=== PATIENT | male | born 1970 | race Caucasian/White ===

== ENCOUNTER → 2017-01-16 | Outpatient (CLI) | payer BC ==
--- NOTE | 2017-01-16 11:20 | XR ---
EXAMINATION TYPE: XR chest 2V DATE OF EXAM: 01/16/2017 11:00 AM COMPARISON: 11/15/2009 INDICATION: Cough, bronchitis TECHNIQUE: Single frontal view of the chest is obtained. FINDINGS: The heart size is normal. The pulmonary vasculature is normal. There is some streak opacity at the left base better visualized on the lateral projection. Correlate for streak atelectasis. IMPRESSION: 1. Streak atelectasis left base
== END | disposition home or self-care (01) ==
LOC: RADXRMAIN 10:42
PROVIDERS: ATTEND Family Medicine
DX: J98.11 Atelectasis (principal); B34.9 Viral infection, unspecified
CPT/HCPCS: 71020; 87502

== ENCOUNTER 2019-11-12 18:52 | Observation (INO) | payer BC ==
[2019-11-12] MEDS ORDERED: SODIUM CHLORIDE 0.9% 1,000 ML IV STA (19:20)
[2019-11-12] MEDS ORDERED: NITROGLYCERIN SL TABS 0.4 MG TAB SUBLINGUAL STA (19:20)
[2019-11-12] MEDS ORDERED: ASPIRIN 81 MG PO STA (19:20)
--- NOTE | 2019-11-12 19:23 | ED ---
Chest Pain HPI - General Chief Complaint: Chest Pain Stated Complaint: chest pain Time Seen by Provider: 11/12/19 19:13 Source: patient, RN notes reviewed Mode of arrival: ambulatory Limitations: no limitations - History of Present Illness Initial Comments: This a 49-year-old male with a history of tachycardia in the past that was evaluated with EPS studies with a negative result who presents with complaints of the onset of chest pain this started today between 4 4:30 PM he states is been on-and-off as severe as 8 or 9/10 severity for brief periods of time currently not a 3-4/10 in severity he was apparently very pale-appearing earlier per his he states the pain does sometimes go down his left arm. He had no cough no phlegm production no fevers chills nausea vomiting no overt sweats. No palpitations or tachycardia. He is a nonsmoker. No other modifying factors at this time MD Complaint: chest pain - Related Data Previous Rx's Medication Instructions Recorded Ibuprofen [Motrin] 600 mg PO Q6HR PRN #20 tab 01/11/15 Allergies Allergy/AdvReac Type Severity Reaction Status Date / Time Penicillins Allergy Unknown Verified 11/12/19 18:59 Review of Systems ROS Statement: Those systems with pertinent positive or pertinent negative responses have been documented in the HPI. ROS Other: All systems not noted in ROS Statement are negative. EKG Findings - EKG Results: EKG: interpreted by DONNELL, sinus rhythm (Sinus rhythm rate 671:30 QRS duration 90 QT since QTC 372/393 st-t wave changes) Past Medical History Past Medical History: No Reported History Additional Past Medical History / Comment(s): tachycardia History of Any Multi-Drug Resistant Organisms: None Reported Past Surgical History: Orthopedic Surgery Additional Past Surgical History / Comment(s): cardiac cath Past Psychological History: No Psychological Hx Reported Smoking Status: Never smoker Past Alcohol Use History: None Reported Past Drug Use History: None Reported General Exam - General Exam Comments Initial Comments: This is a well-developed well-nourished awake alert oriented 3 male Limitations: no limitations General appearance: alert, anxious Head exam: Present: atraumatic, normocephalic, normal inspection Eye exam: Present: normal appearance, PERRL, EOMI. Absent: scleral icterus, conjunctival injection, periorbital swelling ENT exam: Present: normal exam, mucous membranes moist Neck exam: Present: normal inspection, full ROM, other (No stridor JVD or bruits). Absent: tenderness, meningismus, lymphadenopathy Respiratory exam: Present: normal lung sounds bilaterally. Absent: respiratory distress, wheezes, rales, rhonchi, stridor Cardiovascular Exam: Present: regular rate, normal rhythm, normal heart sounds. Absent: systolic murmur, diastolic murmur, rubs, gallop, clicks GI/Abdominal exam: Present: soft, normal bowel sounds. Absent: distended, tenderness, guarding, rebound, rigid Extremities exam: Present: normal inspection, full ROM, normal capillary refill. Absent: tenderness, pedal edema, joint swelling, calf tenderness Back exam: Present: normal inspection Neurological exam: Present: alert, oriented X3, CN II-XII intact Psychiatric exam: Present: normal affect, normal mood Skin exam: Present: warm, dry, intact, normal color. Absent: rash Course Vital Signs 11/12/19 11/12/19 18:56 20:11 Temperature 97.5 F L Pulse Rate 75 87 Respiratory 18 16 Rate Blood Pressure 164/106 113/80 O2 Sat by Pulse 99 96 Oximetry - Reevaluation(s) Reevaluation #1: 11/12/19 21:46 Patient did get relief from his discomfort after given nitroglycerin. Reevaluation #2: 11/12/19 21:47 I did discuss the lab work with the family the elevated d-dimer will be investigated CAT scan was negative however. No evidence of PE Chest Pain MDM - MDM I did review the imaging and report no acute findings patient does demonstrate evidence of chest pain which is suspicious for new-onset angina patient will be admitted with cardiology consultation the case is discussed with the family as well as with Dr. Castillo. Critical Care Time Critical Care Time: Yes Critical Care Time: 31 minutes of critical care time which includes initial presentation with history physical labs x-rays reevaluation patient responsive therapy discuss with the patient regarding all the findings on several occasions discuss with the admitting physician admission orders and documentation of the above Disposition Clinical Impression: Chest pain, Unstable angina Disposition: ADMITTED IP TO THIS [facility] Condition: Fair Referrals: Steven Castillo MD [Primary Care Provider] - 1-2 days
[2019-11-12 19:33] LABS: Basophils # (A) 0.1 k/uL (0-0.2); Basophils % (A) 1 %; Eosinophils # (A) 0.1 k/uL (0-0.7); Eosinophils % (A) 1 %; HCT 49.3 % (39.0-53.0); HGB 16.4 gm/dL (13.0-17.5); Lymphocytes # (A) 2.4 k/uL (1.0-4.8); Lymphocytes % (A) 35 %; MCH 30.4 pg (25.0-35.0); MCHC 33.2 g/dL (31.0-37.0); MCV 91.6 fL (80.0-100.0); Mean Platelet Volume 8.6; Monocytes # (A) 0.5 k/uL (0-1.0); Monocytes % (A) 7 %; Neutrophils # (A) 3.7 k/uL (1.3-7.7); Neutrophils % (A) 54 %; Platelet Count 218 k/uL (150-450); RBC 5.38 m/uL (4.30-5.90); RDW 12.3 % (11.5-15.5); WBC 6.9 k/uL (3.8-10.6)
[2019-11-12 19:42] LABS: Albumin 4.6 g/dL (3.5-5.0); Calcium 9.1 mg/dL (8.4-10.2); Magnesium 2.1 mg/dL (1.6-2.3); Potassium 3.9 mmol/L (3.5-5.1); Total Bilirubin 0.5 mg/dL (0.2-1.3); Total Protein 7.9 g/dL (6.3-8.2)
[2019-11-12 19:53] LABS: Prothrombin Time 10.4 sec (9.0-12.0)
--- NOTE | 2019-11-12 20:04 | XR ---
EXAMINATION TYPE: XR chest 2V DATE OF EXAM: 11/12/2019 COMPARISON: 01/16/2017 INDICATION: Chest pain TECHNIQUE: Frontal and lateral views of the chest are obtained. FINDINGS: The heart size is normal. The pulmonary vasculature is normal. Very minimal plate atelectasis or scarring is at the left lung base. Lungs are otherwise clear. IMPRESSION: 1. Minimal scarring left lung base. Recurrent plate atelectasis could be considered.
[2019-11-12 20:05] LABS: D-Dimer 0.62 mg/L FEU (<0.60)
--- NOTE | 2019-11-12 21:14 | CT ---
CT CHEST FOR PULMONARY EMBOLISM. EXAMINATION TYPE: CT angio chest DATE OF EXAM: 11/12/2019 INDICATION: Chest pain, Elevated d-dimer CT DLP: 471.1 mGycm, Automated exposure control for dose reduction was used. CONTRAST: Patient injected with 80 mL of Isovue 370. COMPARISON: None TECHNIQUE: CT of the chest is performed on a spiral scan at 2 mm thick sections. Study is performed with intravenous contrast timed for evaluation for pulmonary embolism. This will limit additional po rtions of the evaluation. 3-D MIP images reconstructed by the technologist are reviewed on the compu ter in the coronal and sagittal planes. FINDINGS: No persistent filling defects are evident to suggest an acute pulmonary embolism. No mediastinal or hilar adenopathy enlarged by CT criteria is evident. The ascending aorta diameter at the level of the main pulmonary artery is 3.3 cm. The main pulmonary artery diameter at the bifur cation is 2.8 cm. Lung windows are clear. Limited CT section through the upper abdomen are unremarkable. IMPRESSIONS: 1. No acute pulmonary embolism.
[2019-11-12] MEDS ORDERED: NITROGLYCERIN SL TABS 0.4 MG TAB SUBLINGUAL PRN (21:48)
[2019-11-12] MEDS ORDERED: HEPARIN SODIUM,PORCINE 5,000 UNIT/ML 1 ML VIAL IV ONE (21:48)
[2019-11-12] MEDS ORDERED: NITROGLYCERIN OINT 1 INCH/GM PACKET TOPICAL STA (21:50)
[2019-11-12] MEDS ORDERED: HEPARIN SOD,PORK IN 0.45% NACL 25,000 UNIT in 0.45% NACL 1 250ML.BAG IV SCH (22:00)
[2019-11-12] MEDS: NITROGLYCERIN OINT 1 INCH/GM PACKET TOPICAL SCH (22:43)
[2019-11-13] MEDS: NITROGLYCERIN OINT 1 INCH/GM PACKET TOPICAL SCH (05:33)
[2019-11-13 05:57] LABS: Cholesterol 163 mg/dL (<200); HDL Cholesterol 53 mg/dL (40-60); LDL Cholesterol,Calculated 88 mg/dL (0-99); Triglycerides 111 mg/dL (<150)
[2019-11-13 08:31] VITALS: RESP 18
[2019-11-13] MEDS ORDERED: INFLUENZA VACCINE (6 MOS+) 60 MCG/0.5 ML SYRINGE IM ONE (09:00)
[2019-11-13] MEDS ORDERED: ASPIRIN 81 MG PO SCH (09:00)
[2019-11-13] MEDS ORDERED: ASPIRIN 325 MG TAB PO SCH (09:00)
--- NOTE | 2019-11-13 09:16 | P.CRDCN ---
History of Present Illness History of present illness: HISTORY OF PRESENTING ILLNESS This is a pleasant 49-year-old male with no significant past medical history. 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 We have been asked to see in consultation for chest pain. He states yesterday while at work sitting down he experienced a tight squeezing sensation in the midsternal region. At times there is radiation down the left arm but most of the time it remained centralized in the chest. There is no specific aggravating or alleviating factors. He denies associated shortness of breath, dizziness, nausea, vomiting, diaphoresis or palpitations. He does have a history of intermittent palpitations that has been worked up in the past by Dr. Waggoner with an EP study. There is no definitive diagnosis ever determined. He does not follow regularly in the office. He is seen and examined sitting up in bed in no acute distress. He has had no further symptoms of chest discomfort since arriving in the hospital. Telemetry tracings have been unremarkable. DIAGNOSTICS EKG reveals sinus mechanism with no acute ST or T wave abnormalities noted. Chest xray minimal scarring of the left lung base. CTA negative for pulmonary embolism, ascending aorta diameter at the level of the main pulmonary arteries 3.3 cm. Laboratory reviewed, CBC unremarkable, d-dimer 0.62, sodium 139, potassium 3.9, creatinine 1.19, cardiac enzymes negative 3, LDL 88. He takes no daily cardiac medications. REVIEW OF SYSTEMS At the time of my exam: CONSTITUTIONAL: Denies fever or chills. CARDIOVASCULAR: Denies chest pain, shortness of breath, orthopnea, PND or palpitations. RESPIRATORY: Denies cough. GASTROINTESTINAL: Denies abdominal pain, diarrhea, constipation, nausea or vomiting. MUSCULOSKELETAL: Denies myalgias. NEUROLOGIC: Denies numbness, tingling or weakness. ENDOCRINE: Denies fatigue, weight change, polydipsia or polyurina. GENITOURINARY: Denies burning, hematuria or urgency with micturation. HEMATOLOGIC: Denies history of anemia or bleeding. PHYSICAL EXAMINATION Blood pressure 113/67 heart rate 62 afebrile and maintaining oxygen saturation on room air. CONSTITUTIONAL: No apparent distress. HEENT: Head is normocephalic. Pupils are equal, round. Sclerae anicteric. Mucous membranes of the mouth are moist. No JVD. No carotid bruit. CHEST EXAMINATION: Lungs are clear to auscultation. No chest wall tenderness is noted on palpation or with deep breathing. HEART EXAMINATION: Regular rate and rhythm. S1, S2 heard. No murmurs, gallops or rub. ABDOMEN: Soft, nontender. Positive bowel sounds. EXTREMITIES: 2+ peripheral pulses, no lower extremity edema and no calf tenderness. NEUROLOGIC EXAMINATION: Patient is awake, alert and oriented x3. ASSESSMENT Chest pain, atypical for angina. An acute event has been ruled out. PLAN An acute event has been ruled out. Obtain 2D echocardiogram and doppler study to assess cardiac structure and function. Perform stress echocardiogram to assess for stress induced ischemia. If normal he is stable from a cardiac perspective. Thank you kindly for this consultation. Nurse Practitioner note has been reviewed, I agree with a documented findings and plan of care. Patient was seen and examined. Past Medical History Past Medical History: No Reported History Additional Past Medical History / Comment(s): tachycardia History of Any Multi-Drug Resistant Organisms: None Reported Past Surgical History: Orthopedic Surgery Additional Past Surgical History / Comment(s): ep study; tilt table; l knee x2; right elbow Past Psychological History: No Psychological Hx Reported Smoking Status: Never smoker Past Alcohol Use History: None Reported Past Drug Use History: None Reported Medications and Allergies Home Medications Medication Instructions Recorded Confirmed Type No Known Home Medications 11/12/19 11/12/19 History Allergies Allergy/AdvReac Type Severity Reaction Status Date / Time Penicillins Allergy Unknown Verified 11/12/19 22:07 Physical Exam Vitals: Vital Signs Temp Pulse Pulse Resp BP BP Pulse Ox 11/13/19 03:46 98.2 F 78 16 105/64 97 11/12/19 23:21 98.6 F 62 18 118/71 96 11/12/19 22:25 98.6 F 79 16 116/91 96 11/12/19 20:11 87 16 113/80 96 11/12/19 18:56 97.5 F L 75 18 164/106 99 Intake and Output 11/12/19 11/13/19 11/13/19 22:59 06:59 14:59 Intake Total 366.624 Balance 366.624 Intake: Intake, IV Titration 366.624 Amount Heparin Sod,Pork in 0.45% 66.624 NaCl 25,000 unit In 0.45 % NaCl 1 250ml.bag @ 12 UNITS/KG/HR 8.709 mls/hr IV .Q24H ABIOLA Rx#: [id number] Sodium Chloride 0.9% 1, 300 000 ml @ 75 mls/hr IV . [id number] STA Rx#:[id number] Other: Weight 72.575 kg 72.575 kg Results 11/12/19 19:23 11/12/19 19:23 Cardiac Enzymes 11/12/19 11/12/19 11/13/19 Range/Units 19:23 19:23 01:49 AST 32 (17-59) U/L Troponin I <0.012 <0.012 (0.000-0.034) ng/mL 11/13/19 Range/Units 05:22 AST (17-59) U/L Troponin I <0.012 (0.000-0.034) ng/mL Coagulation 11/12/19 11/13/19 Range/Units 19:23 05:22 PT 10.4 (9.0-12.0) sec APTT 25.0 39.8 H (22.0-30.0) sec Lipids 11/13/19 Range/Units 05:22 Triglycerides 111 (<150) mg/dL Cholesterol 163 (<200) mg/dL HDL Cholesterol 53 (40-60) mg/dL CBC 11/12/19 Range/Units 19:23 WBC 6.9 (3.8-10.6) k/uL RBC 5.38 (4.30-5.90) m/uL Hgb 16.4 (13.0-17.5) gm/dL Hct 49.3 (39.0-53.0) % Plt Count 218 (150-450) k/uL Comprehensive Metabolic Panel 11/12/19 Range/Units 19:23 Sodium 139 (137-145) mmol/L Potassium 3.9 (3.5-5.1) mmol/L Chloride 103 (98-107) mmol/L Carbon Dioxide 27 (22-30) mmol/L BUN 11 (9-20) mg/dL Creatinine 1.19 (0.66-1.25) mg/dL Glucose 124 H (74-99) mg/dL Calcium 9.1 (8.4-10.2) mg/dL AST 32 (17-59) U/L ALT 27 (4-49) U/L Alkaline Phosphatase 60 (38-126) U/L Total Protein 7.9 (6.3-8.2) g/dL Albumin 4.6 (3.5-5.0) g/dL Current Medications Generic Name Dose Route Start Last Admin Trade Name Freq PRN Reason Stop Dose Admin Sodium Chloride 1,000 mls @ 75 mls/hr 11/12/19 19:20 11/12/19 19:31 Saline 0.9% IV 11/13/19 08:39 75 mls/hr .[id number] STA Administration Influenza Virus Vaccine Quadrival 60 mcg 11/13/19 09:00 Flulaval Vaccine [id number] IM 11/13/19 09:01 .ONCE ONE Nitroglycerin 0.4 mg 11/12/19 21:48 Nitrostat SUBLINGUAL Q5M PRN Chest Pain Intake and Output 11/12/19 11/13/19 11/13/19 22:59 06:59 14:59 Intake Total 366.624 Balance 366.624 Intake: Intake, IV Titration 366.624 Amount Heparin Sod,Pork in 0.45% 66.624 NaCl 25,000 unit In 0.45 % NaCl 1 250ml.bag @ 12 UNITS/KG/HR 8.709 mls/hr IV .Q24H ABIOLA Rx#: [id number] Sodium Chloride 0.9% 1, 300 000 ml @ 75 mls/hr IV . [id number] STA Rx#:[id number] Other: Weight 72.575 kg 72.575 kg 11/12/19 19:23 11/12/19 19:23
[2019-11-13 12:01] VITALS: BP 114/70; PULSE 70; TEMP 98.2
--- NOTE | 2019-11-13 12:27 | ECHOF ---
Referral Reason:cp MEASUREMENTS -------- HEIGHT: 167.6 cm WEIGHT: 72.6 kg BP: 105/64 RVIDd: 3.4 cm (< 3.3) IVSd: 0.9 cm (0.6 - 1.1) LVIDd: 3.4 cm (3.9 - 5.3) LVPWd: 1.2 cm (0.6 - 1.1) IVSs: 1.4 cm LVIDs: 2.5 cm LVPWs: 1.6 cm LAESV Index (A-L): 26.26 ml/m Ao Diam: 3.3 cm (2.0 - 3.7) AV Cusp: 2.3 cm (1.5 - 2.6) LA Diam: 3.6 cm (2.7 - 3.8) MV EXCURSION: 17.354 mm (> 18.000) MV EF SLOPE: 94 mm/s (70 - 150) EPSS: 0.5 cm MV E Pedrito: 0.82 m/s MV DecT: 296 ms MV A Pedrito: 0.33 m/s MV E/A Ratio: 2.47 RAP: 5.00 mmHg RVSP: 26.68 mmHg FINDINGS -------- Sinus rhythm. This was a technically good study. The left ventricular size is normal. Left ventricular wall thickness is normal. There is normal g lobal left ventricular contractility. Overall left ventricular systolic function is normal with, an EF between 55 - 60 %. The diastolic filling pattern is normal for the age of the patient 8.94. The right ventricle is mildly enlarged. Normal LA size by volume 22+/-6 ml/m2. The right atrial size is normal. Interatrial and interventricular septum intact. There is no evidence of aortic regurgitation. There is no evidence of aortic stenosis. No mitral regurgitation. Trace tricuspid regurgitation present. There is no evidence of pulmonary hypertension. The right ventricular systolic pressure, as measured by Doppler, is 26.68mmHg. Trace/mild (physiologic) pulmonic regurgitation. The aortic root size is normal. Normal inferior vena cava with normal inspiratory collapse consistent with estimated right atrial pre ssure of 5 mmHg. There is no pericardial effusion. CONCLUSIONS -------- 1. Sinus rhythm. 2. This was a technically good study. 3. The left ventricular size is normal. 4. Left ventricular wall thickness is normal. 5. There is normal global left ventricular contractility. 6. Overall left ventricular systolic function is normal with, an EF between 55 - 60 %. 7. The diastolic filling pattern is normal for the age of the patient 8.94 8. The right ventricle is mildly enlarged. 9. Normal LA size by volume 22+/-6 ml/m2. 10. The right atrial size is normal. 11. Interatrial and interventricular septum intact. 12. There is no evidence of aortic regurgitation. 13. There is no evidence of aortic stenosis. 14. No mitral regurgitation. 15. Trace tricuspid regurgitation present. 16. There is no evidence of pulmonary hypertension. 17. The right ventricular systolic pressure, as measured by Doppler, is 26.68mmHg. 18. Trace/mild (physiologic) pulmonic regurgitation. 19. The aortic root size is normal. 20. Normal inferior vena cava with normal inspiratory collapse consistent with estimated right atrial pressure of 5 mmHg. 21. There is no pericardial effusion. TELEPHONE OPERATOR RECEPTIONIST: Nikki Esquivel RDCS
--- NOTE | 2019-11-13 13:21 | ECHOS ---
STRESS ECHOCARDIOGRAM DATE OF SERVICE: 11/13/2019 INDICATIONS: Chest pain. MEDICATIONS: BASELINE HEART RATE: 67 BASELINE BLOOD PRESSURE: 107/82 MAXIMUM HEART RATE: 162 MAXIMUM BLOOD PRESSURE: 152/61 85% MPHR: 147 100% MPHR: 173 METS: 9.7 MAXIMUM STAGE REACHED: III TOTAL EXERCISE TIME: 8 minutes 7 seconds CLINICAL INFORMATION: Baseline EKG revealed normal sinus rhythm without significant ST-T changes. Patient walked on a standard Manpreet protocol for a total duration of 8 minutes 7 seconds. Achieved a maximal heart rate of 162 beats per minute, developed fatigue and shortness of breath but did not have angina or arrhythmia. EKG did not reveal any ST-segment changes to indicate ischemia. By EKG criteria, this is a negative stress test with fair exercise capacity. Baseline echo images revealed normal wall motion and wall thickening of all segments. At peak exercise, there was good augmentation of left ventricular wall motion and wall thickening of all segments suggesting that there is no evidence of stress-induced ischemia on this study. FINAL IMPRESSION: 1. By EKG criteria, this is a negative stress test with fair exercise capacity. 2. Normal stress echocardiogram without evidence of any stress-induced ischemia. MMODL / IJN: [id number] /
== END 2019-11-13 13:45 | disposition home or self-care (01) ==
LOC: EC 18:52 → 1SOBS 21:48
PROVIDERS: ADMIT Family Medicine; ATTEND Family Medicine
DX: R07.89 Other chest pain (principal); R00.2 Palpitations; Z88.0 Allergy status to penicillin
CPT/HCPCS: 93005 ×2; 96366 ×2; 96376; 96365; 99291; 36415; 93306; 93351; 85379; 80061; 80053; 82550; 83690; 83735; 84484 ×2; 85025; 85610; 85730 ×2; 71046; 71275; 90686; G0378 ×2; G0008; J1644 ×2; Q9967

== ENCOUNTER 2020-10-03 01:00 | Emergency (ER) | payer BC ==
[2020-10-03 01:05] VITALS: RESP 18
[2020-10-03 02:17] LABS: Appearance,Urine Clear (Clear); Bilirubin,Urine Negative (Negative); Blood,Urine Negative (Negative); Color,Urine Yellow; Glucose,Urine (UA) Negative (Negative); Ketones,Urine Negative (Negative); Leukocyte Esterase,Urine Negative (Negative); Nitrite,Urine Negative (Negative); Protein,Urine Trace (Negative); Specific Gravity,Urine 1.028 (1.001-1.035); Urobilinogen,Urine <2.0 mg/dL (<2.0)
[2020-10-03 02:52] LABS: Basophils # (A) 0.2 k/uL (0-0.2); Basophils % (A) 2 %; Eosinophils # (A) 0.1 k/uL (0-0.7); Eosinophils % (A) 1 %; HCT 46.1 % (39.0-53.0); Lymphocytes # (A) 2.2 k/uL (1.0-4.8); Lymphocytes % (A) 22 %; MCH 30.7 pg (25.0-35.0); MCHC 34.6 g/dL (31.0-37.0); MCV 88.9 fL (80.0-100.0); Mean Platelet Volume 7.7; Monocytes # (A) 0.8 k/uL (0-1.0); Monocytes % (A) 8 %; Neutrophils # (A) 6.6 k/uL (1.3-7.7); Neutrophils % (A) 66 %; Platelet Count 234 k/uL (150-450); RBC 5.19 m/uL (4.30-5.90); RDW 12.4 % (11.5-15.5)
[2020-10-03 03:09] LABS: ALT 36 U/L (4-49); AST 29 U/L (17-59); African American GFR (CKD) >90 (>60 ml/min/1.73 sqM); Albumin 4.3 g/dL (3.5-5.0); Alkaline Phosphatase 56 U/L (38-126); Anion Gap 8 mmol/L; Blood Urea Nitrogen 15 mg/dL (9-20); C Reactive Protein <5.0 mg/L (<10.0); Calcium 9.4 mg/dL (8.4-10.2); Carbon Dioxide 23 mmol/L (22-30); Chloride 105 mmol/L (98-107); Glucose 112 mg/dL (74-99); Non-African American GFR(CKD) 83 (>60 ml/min/1.73 sqM); Sodium 136 mmol/L (137-145); Total Bilirubin 0.3 mg/dL (0.2-1.3); Total Protein 7.6 g/dL (6.3-8.2)
--- NOTE | 2020-10-03 04:45 | CT ---
EXAM: CT Abdomen and Pelvis With Intravenous Contrast CLINICAL HISTORY: ITS.REASON CT Reason: L groin pain TECHNIQUE: Axial computed tomography images of the abdomen and pelvis with intravenous contrast. CTDI is 21.774 mGy and DLP is 1010.70 mGy-cm. This CT exam was performed using one or more of the following dose reduction techniques: automated exposure control, adjustment of the mA and/or kV according to patient size, and/or use of iterative reconstruction technique. COMPARISON: None available FINDINGS: Lung bases: Trace bibasilar atelectasis. No mass. No consolidation. ABDOMEN: Liver: Diffusely hypoattenuating liver. No mass. Gallbladder and bile ducts: Unremarkable. No calcified stones. No ductal dilation. Pancreas: Unremarkable. No mass. No ductal dilation. Spleen: Unremarkable. No splenomegaly. Adrenals: Unremarkable. No mass. Kidneys and ureters: Symmetric renal parenchymal enhancement. No solid mass. No hydronephrosis. Stomach and bowel: Colonic diverticulosis. No obstruction. No mucosal thickening. PELVIS: Appendix: No findings to suggest acute appendicitis. Bladder: Unremarkable. No mass. Reproductive: Unremarkable as visualized. ABDOMEN and PELVIS: Intraperitoneal space: Unremarkable. No free air. No significant fluid collection. Bones/joints: No acute fracture. No dislocation. Soft tissues: Unremarkable. Vasculature: Unremarkable. No abdominal aortic aneurysm. Lymph nodes: Unremarkable. No enlarged lymph nodes. IMPRESSION: 1. Colonic diverticulosis with no evidence of diverticulitis. 2. Hepatic steatosis.
--- NOTE | 2020-10-03 05:22 | ED ---
General Adult HPI - General Chief complaint: Urogenital Stated complaint: Groin pain Time Seen by Provider: 10/03/20 01:39 Source: patient Mode of arrival: ambulatory Limitations: no limitations - History of Present Illness Initial comments: This patient is a 50-year-old man presenting to be evaluated for pain at the left groin. Patient states came on while he was sitting. He did not recall any injury or trauma to the area. The patient does mention that he had a heart cath for an EPS performed through that groin but that was a number of years ago now. The patient states the pain has markedly improved. He did not experience any change in bowel movements or urination. No vomiting. Onset/Timin -: hour(s) Location: left, lower extremity Radiation: non-radiation Quality: sharp Consistency: now resolved Improves with: none Worsens with: none Associated Symptoms: denies other symptoms Treatments Prior to Arrival: none - Related Data Previous Rx's Medication Instructions Recorded traMADol HCl [Ultram] 50 mg PO Q6H PRN #20 tab 10/03/20 Allergies Allergy/AdvReac Type Severity Reaction Status Date / Time Penicillins Allergy Unknown Verified 10/03/20 01:05 Review of Systems ROS Statement: Those systems with pertinent positive or pertinent negative responses have been documented in the HPI. ROS Other: All systems not noted in ROS Statement are negative. Constitutional: Denies: fever, chills Respiratory: Denies: cough, dyspnea Cardiovascular: Denies: chest pain, palpitations, edema, syncope Gastrointestinal: Denies: abdominal pain, nausea, vomiting, diarrhea, constipation, melena, hematochezia Genitourinary: Denies: dysuria, hematuria, testicular pain, testicular mass Musculoskeletal: Denies: back pain Skin: Denies: rash Neurological: Denies: headache, weakness, numbness Past Medical History Past Medical History: No Reported History Additional Past Medical History / Comment(s): tachycardia History of Any Multi-Drug Resistant Organisms: None Reported Past Surgical History: Orthopedic Surgery Additional Past Surgical History / Comment(s): ep study; tilt table; l knee x2; right elbow Past Psychological History: No Psychological Hx Reported Smoking Status: Never smoker Past Alcohol Use History: None Reported Past Drug Use History: None Reported General Exam Limitations: no limitations General appearance: alert, in no apparent distress Head exam: Present: atraumatic, normocephalic Eye exam: Present: normal appearance. Absent: scleral icterus, conjunctival injection Respiratory exam: Present: normal lung sounds bilaterally. Absent: respiratory distress, wheezes, rales, rhonchi, stridor Cardiovascular Exam: Present: regular rate, normal rhythm, normal heart sounds. Absent: systolic murmur, diastolic murmur, rubs, gallop GI/Abdominal exam: Present: soft. Absent: distended, tenderness, guarding, rebound, rigid, mass, pulsatile mass, hernia exam: Present: normal inspection Extremities exam: Present: full ROM, tenderness, normal capillary refill, other (The patient has some very mild tenderness to the proximal left leg, just distal to the inguinal ligament. There is no palpable mass. There is a good palpable pulse with no evident aneurysmal dilatation. No groin nodes evident). Absent: pedal edema, joint swelling Back exam: Present: normal inspection. Absent: CVA tenderness (R), CVA tendern ess (L), vertebral tenderness Neurological exam: Present: alert. Absent: motor sensory deficit Skin exam: Present: warm, dry, intact, normal color. Absent: rash Course Vital Signs 10/03/20 10/03/20 10/03/20 01:03 03:00 04:05 Temperature 98.1 F Pulse Rate 89 82 82 Respiratory 18 18 18 Rate Blood Pressure 133/89 115/84 120/85 O2 Sat by Pulse 98 96 97 Oximetry 10/03/20 10/03/20 05:00 05:35 Temperature 97.9 F Pulse Rate 81 79 Respiratory 18 18 Rate Blood Pressure 134/89 123/87 O2 Sat by Pulse 98 97 Oximetry Medical Decision Making - Medical Decision Making Patient is 50-year-old man with left groin pain without any apparent injury or trauma. The exam is benign. The patient states that he did feel a lump there and therefore CT is obtained to rule out a possible small hernia but this is not evident. Patient will be prescribed small amount of analgesia and follow-up for possible further studies area we did discuss return parameters. - Lab Data Result diagrams: 10/03/20 02:44 10/03/20 02:44 Lab Results 10/03/20 10/03/20 10/03/20 Range/Units 02:00 02:44 02:44 WBC 10.0 (3.8-10.6) k/uL RBC 5.19 (4.30-5.90) m/uL Hgb 16.0 (13.0-17.5) gm/dL Hct 46.1 (39.0-53.0) % MCV 88.9 (80.0-100.0) fL MCH 30.7 (25.0-35.0) pg MCHC 34.6 (31.0-37.0) g/dL RDW 12.4 (11.5-15.5) % Plt Count 234 (150-450) k/uL MPV 7.7 Neutrophils % 66 % Lymphocytes % 22 % Monocytes % 8 % Eosinophils % 1 % Basophils % 2 % Neutrophils # 6.6 (1.3-7.7) k/uL Lymphocytes # 2.2 (1.0-4.8) k/uL Monocytes # 0.8 (0-1.0) k/uL Eosinophils # 0.1 (0-0.7) k/uL Basophils # 0.2 (0-0.2) k/uL Sodium 136 L (137-145) mmol/L Potassium 4.0 (3.5-5.1) mmol/L Chloride 105 (98-107) mmol/L Carbon Dioxide 23 (22-30) mmol/L Anion Gap 8 mmol/L BUN 15 (9-20) mg/dL Creatinine 1.06 (0.66-1.25) mg/dL Est GFR (CKD-EPI)AfAm >90 (>60 ml/min/1.73 sqM) Est GFR (CKD-EPI)NonAf 83 (>60 ml/min/1.73 sqM) Glucose 112 H (74-99) mg/dL Calcium 9.4 (8.4-10.2) mg/dL Total Bilirubin 0.3 (0.2-1.3) mg/dL AST 29 (17-59) U/L ALT 36 (4-49) U/L Alkaline Phosphatase 56 (38-126) U/L C-Reactive Protein <5.0 (<10.0) mg/L Total Protein 7.6 (6.3-8.2) g/dL Albumin 4.3 (3.5-5.0) g/dL Urine Color Yellow Urine Appearance Clear (Clear) Urine pH 5.0 (5.0-8.0) Ur Specific [place] 1.028 (1.001-1.035) Urine Protein Trace H (Negative) Urine Glucose (UA) Negative (Negative) Urine Ketones Negative (Negative) Urine Blood Negative (Negative) Urine Nitrite Negative (Negative) Urine Bilirubin Negative (Negative) Urine Urobilinogen <2.0 (<2.0) mg/dL Ur Leukocyte Esterase Negative (Negative) Disposition Clinical Impression: Left groin pain Disposition: HOME SELF-CARE Condition: Good Instructions (If sedation given, give patient instructions): Groin Pain (ED) Prescriptions: traMADol HCl [Ultram] 50 mg PO Q6H PRN #20 tab PRN Reason: Pain Is patient prescribed a controlled substance at d/c from ED?: No Referrals: Steven Castillo MD [Primary Care Provider] - 1-2 days
[2020-10-03 05:42] VITALS: BP 123/87; PULSE 79; TEMP 97.9
== END 2020-10-03 05:35 | disposition home or self-care (01) ==
LOC: EC 01:00
DX: R10.32 Left lower quadrant pain (principal); Z88.0 Allergy status to penicillin
CPT/HCPCS: 36415; 80053; 85025; 86140; 81003; 74177; 99284; Q9967

== ENCOUNTER → 2021-04-12 | Outpatient (CLI) | payer BC ==
[2021-04-12 15:49] LABS: Basophils % (A) 1 %; Eosinophils # (A) 0.1 k/uL (0-0.7); Eosinophils % (A) 1 %; HCT 46.2 % (39.0-53.0); HGB 16.3 gm/dL (13.0-17.5); Lymphocytes % (A) 29 %; MCHC 35.3 g/dL (31.0-37.0); MCV 90.7 fL (80.0-100.0); Mean Platelet Volume 8.1; Monocytes # (A) 0.6 k/uL (0-1.0); Monocytes % (A) 8 %; Neutrophils # (A) 4.1 k/uL (1.3-7.7); Neutrophils % (A) 60 %; Platelet Count 202 k/uL (150-450); RBC 5.09 m/uL (4.30-5.90); RDW 12.3 % (11.5-15.5); WBC 6.8 k/uL (3.8-10.6)
[2021-04-12 15:56] LABS: C Reactive Protein 0.7 mg/dL (<1.0); Uric Acid 6.3 mg/dL (3.5-8.5)
[2021-04-12 17:03] LABS: Erythrocyte Sedimentation Rate 6 mm/hr (0-15)
--- NOTE | 2021-04-13 02:47 | MR ---
EXAMINATION TYPE: MR hip LT wo con DATE OF EXAM: 04/12/2021 COMPARISON: None HISTORY: Multiplanar multiecho imaging of the pelvis and left hip was performed without contrast. Bony pelvis is intact. Sacroiliac joints appear intact. There is no evidence of a pelvic mass. There is no free fluid in the pelvis. Proximal femurs are intact. There is no evidence of avascular necrosis. Hip joint spaces are fairly n ormal. There is no evidence of any significant hip joint effusion. IMPRESSION: Negative MR scan of the left hip. No evidence of any significant arthritic disease. No sign of avascu lar necrosis.
== END | disposition home or self-care (01) ==
LOC: RADMRIMAIN 13:16
PROVIDERS: ATTEND Orthopaedic Surgery
DX: M25.552 Pain in left hip (principal)
CPT/HCPCS: 84550; 85025; 85652; 86038; 86140; 86431

== ENCOUNTER → 2022-06-02 | Outpatient (CLI) | payer BC ==
[2022-06-02 23:07] LABS: Anion Gap 10.6 mmol/L (10.00-18.00); BUN/Creat Ratio 7.36 Ratio (12.00-20.00); Blood Urea Nitrogen 8.9 mg/dL (9.0-27.0); Calcium 9.2 mg/dL (8.7-10.3); Carbon Dioxide 25.9 mmol/L (20.0-27.5); Magnesium 2.2 mg/dL (1.5-2.4); Non-African American GFR(CKD) 69.9 (60.0-200.0)
== END | disposition home or self-care (01) ==
LOC: LABWHC1 13:39
PROVIDERS: ATTEND Internal Medicine
DX: R00.2 Palpitations (principal)
CPT/HCPCS: 36415; 80048; 83735; 84443

== ENCOUNTER → 2022-06-26 | Day surgery (SDC) | payer BC ==
[2022-06-22 13:10] VITALS: BMI 29.0
[~2022-06-26] MED LIST: SODIUM CHLORIDE 0.9% 1,000 ML IV SCH; SODIUM CHLORIDE 0.9% 500 ML 500 ML IV ONE
[2022-06-26 08:37] VITALS: BP 123/86; PULSE 79; RESP 16; TEMP 98.4
--- NOTE | 2022-06-26 14:03 | P.EPPROC ---
- EP Procedure Note Electrophysiology Procedure Note: Diagnosis Recurrent presyncope Increasing frequency and severity of episodes Twelve-lead EKG shows sinus mechanism normal CT narrow QRS normal ST segments Tilt table test per protocol Baseline blood pressure 113/72 mmHg, Baseline heart rate is 62 beats a minute Patient was tilted upright at night was 70 per protocol Within 2 minutes he felt lightheaded and was syncopal with about a 4 second pause associated with a simultaneous drop in blood pressure to 58 mmHg systolic He received IV fluids wide open Following that this was repeated once again after IV fluid administration Once again there was an immediate drop in blood pressure to 75/48 mmHg with an abrupt drop in heart rate associated with pauses he was syncopal once again Simultaneous onset of hypertension and bradycardia at the first urine Hypertension preceded the pause at the second event Impression Neurocardiogenic syncope, severe Normal twelve-lead EKG
== END ==
LOC: CATHEP 08:05
PROVIDERS: ATTEND Internal Medicine Clinical Cardiac Electrophysiology
DX: R55 Syncope and collapse (principal); Z20.822 Contact with and (suspected) exposure to COVID-19; I10 Essential (primary) hypertension; Z88.0 Allergy status to penicillin; Z79.899 Other long term (current) drug therapy
CPT/HCPCS: 87635; 93660

== ENCOUNTER 2022-12-20 22:30 | Emergency (ER) | payer BC ==
[2022-12-20 22:36] VITALS: BP 128/85; PULSE 78; RESP 20; TEMP 98.6
[2022-12-20] MEDS ORDERED: DIPH,PERTUS(ACELL)TETVAC-LF 0.5 ML VIAL IM ONE (22:44)
[2022-12-20] MEDS ORDERED: TOPICAL SKIN ADHESIVE 1 EACH AMP TOPICAL ONE (22:45)
--- NOTE | 2022-12-20 23:05 | ED ---
Wound/Laceration HPI - General Chief Complaint: Wound/Laceration Stated Complaint: left finger laceration Time Seen by Provider: 12/20/22 22:37 Source: patient Mode of arrival: ambulatory Limitations: no limitations - History of Present Illness Initial Comments: Patient is a 52-year-old male presenting with chief complaint of laceration. Patient states that he was using a putty knife when it slipped and cut his left index finger. Patient is not up-to-date on his tetanus. No numbness, tingling, weakness, loss of range of motion. Bleeding is well-controlled at this time - Related Data Home Medications Medication Instructions Recorded Confirmed Metoprolol Succinate (ER) [Toprol 50 mg PO DAILY 06/22/22 06/26/22 Xl] Allergies Allergy/AdvReac Type Severity Reaction Status Date / Time Penicillins Allergy Unknown Verified 12/20/22 22:36 Childhood Review of Systems ROS Statement: Those systems with pertinent positive or pertinent negative responses have been documented in the HPI. ROS Other: All systems not noted in ROS Statement are negative. Past Medical History Past Medical History: No Reported History Additional Past Medical History / Comment(s): SEE DR SIDDIQUI'S H&P. tachycardia History of Any Multi-Drug Resistant Organisms: None Reported Past Surgical History: Orthopedic Surgery Additional Past Surgical History / Comment(s): EP study, tilt table test. L knee x2; right elbow Past Anesthesia/Blood Transfusion Reactions: No Reported Reaction Past Psychological History: No Psychological Hx Reported Smoking Status: Never smoker Past Alcohol Use History: None Reported Past Drug Use History: None Reported General Exam Limitations: no limitations General appearance: alert, in no apparent distress Head exam: Present: atraumatic, normocephalic, normal inspection Eye exam: Present: normal appearance Neck exam: Present: normal inspection Neurological exam: Present: alert, oriented X3, CN II-XII intact Psychiatric exam: Present: normal affect, normal mood Expanded Type of lesion: Present: laceration (1 cm laceration to the left index finger) Course Vital Signs 12/20/22 22:31 Temperature 98.6 F Pulse Rate 78 Respiratory 20 Rate Blood Pressure 128/85 O2 Sat by Pulse 98 Oximetry Procedures - Laceration Laceration #1 Consent Obtained: verbal consent Indication: laceration Site: hand (Left index finger) Size (cm): 1 Description: linear Depth: simple, single layer Type of Sutures: other (exofin) Patient Tolerated Procedure: well Medical Decision Making - Medical Decision Making Was pt. sent in by a medical professional or institution ([facility], [facility], urgent care, hospital, or long term...) When possible be specific @ -No Did you speak to anyone other than the patient for history (EMS, parent, family, police, friend...)? What history was obtained from this source @ -No Did you review nursing and triage notes (agree or disagree)? Why? @ -I reviewed and agree with nursing and triage notes Were old charts reviewed (outside hosp., previous admission, EMS record, old E KG, old radiological studies, urgent care reports/EKG's, long term records)? Report findings @ -No old charts were reviewed Differential Diagnosis (chest pain, altered mental status, abdominal pain women, abdominal pain men, vaginal bleeding, weakness, fever, dyspnea, syncope, headache, dizziness, GI bleed, back pain, seizure, CVA, palpatations, mental hea lth, musculoskeletal)? @ -not applicable EKG interpreted by me (3pts min.). @ -As above X-rays interpreted by me (1pt min.). @ -None done CT interpreted by me (1pt min.). @ -None done U/S interpreted by me (1pt. min.). @ -None done What testing was considered but not performed or refused? (CT, X-rays, U/S, labs)? Why? @ -None What meds were considered but not given or refused? Why? @ -None Did you discuss the management of the patient with other professionals (professionals i.e. [facility], [facility], lab, RT, psych nurse, oncology social work, military lawyer, teacher, hotel security officer, case reviewer)? Give summary @ -No Was smoking cessation discussed for >3mins.? @ -No Was critical care preformed (if so, how long)? @ -No Were there social determinants of health that impacted care today? How? (Homelessness, low income, unemployed, alcoholism, drug addiction, transportation, low edu. Level, literacy, decrease access to med. care, half-way, rehab)? @ -No Was there de-escalation of care discussed even if they declined (Discuss DNR or withdrawal of care, Hospice)? DNR status @ -No What co-morbidities impacted this encounter? (DM, HTN, Smoking, COPD, CAD, Cance r, CVA, ARF, Chemo, Hep., AIDS, mental health diagnosis, sleep apnea, morbid obesity)? @ -None Was patient admitted / discharged? Hospital course, mention meds given and route, prescriptions, significant lab abnormalities, going to OR and other pertinent info. @ -Patient is a 52-year-old male presenting with chief complaint of laceration to left index finger. His tetanus is updated here in the ER. Wound is repaired using exofin. Educated patient on supportive treatment and wound care guidelines. Follow-up with PCP. Report back to ER with any new or worsening symptoms. Discussed return parameters and answered all questions. Patient conveyed verbal understanding and agreed to the plan. I discussed this case in detail with my attending Dr. Perkins Undiagnosed new problem with uncertain prognosis? @ -No Drug Therapy requiring intensive monitoring for toxicity (Heparin, Nitro, Insulin, Cardizem)? @ -No Were any procedures done? @ -No Diagnosis/symptom? @ -Finger laceration Acute, or Chronic, or Acute on Chronic? @ -Acute Uncomplicated (without systemic symptoms) or Complicated (systemic symptoms)? @ -Uncomplicated Side effects of treatment? @ -No Exacerbation, Progression, or Severe Exacerbation? @ -No Poses a threat to life or bodily function? How? (Chest pain, [place], ID, pneumonia, PE, COPD, DKA, ARF, appy, cholecystitis, CVA, Diverticulitis, Homicidal, Suici trice, threat to staff... and all critical care pts) @ -No Disposition Clinical Impression: Laceration Disposition: HOME SELF-CARE Condition: Good Instructions (If sedation given, give patient instructions): Finger Laceration (ED), Skin Adhesive Care (ED) Additional Instructions: Follow-up with PCP. Report back to ER with any new or worsening symptoms. Monitor for signs of infection, including but not limited to redness, swelling, pain, discharge, fever, chills. Keep the wound clean and dry and covered. Avoid fully submerging the wound. Clean with soap and water. Do not apply Neosporin or other ointment-based products as this will break down the skin adhesive. Is patient prescribed a controlled substance at d/c from ED?: No Referrals: Steven Castillo MD [Primary Care Provider] - 1-2 days Time of Disposition: 23:05
== END 2022-12-20 23:20 | disposition home or self-care (01) ==
LOC: EC 22:30
DX: S61.211A Laceration without foreign body of left index finger without damage to nail, initial encounter (principal); Z88.0 Allergy status to penicillin; Z23 Encounter for immunization; W26.0XXA Contact with knife, initial encounter
CPT/HCPCS: 12001; 90471; 90715; 99282